=== PATIENT | male | born 1945 | race Two or more races ===

== ENCOUNTER 2017-09-06 09:28 | Emergency (ER) | payer OTHER ==
[2017-09-06 09:49] VITALS: BP 124/77; PULSE 58; TEMP 98; BMI 23.5
--- NOTE | 2017-09-06 11:15 | PDOC ---
History of Present Illness <Josué Elias - Last Filed: 09/06/17 12:34> - General History Source: Patient Exam Limitations: No Limitations - History of Present Illness Initial Comments: 09/06/17 14:08 The patient is a 72 year old male, with a significant past medical history of HTN, Atrial Fibrillation, HLD, DM who presents to the emergency department with R hand/finger pain for the past 2 weeks. Patient reports gradual onset of tingling pain to his 2nd, 3rd and 4th digits. Patient's finger pain is constant and is worse at night but does bother him during the day. Patients pain has been worsening and presents to the ED for further evaluation. Patient denies any insect bites, injuries ,scratches, cuts or falls/injuries. Pt does not do any repeittive motions, or computer work. typically spends his day watching tv. No pain anywhere else including neck, shoulder/elbow/wrist. no headache chest pain, sob, back pain, leg swelling. Allergies: NKA Past surgical history: None Social history: Current everyday smoker PCP: None <Kate Grande - Last Filed: 09/06/17 14:08> - General Chief Complaint: Edema Stated Complaint: SWOLLEN RT HAND Time Seen by Provider: 09/06/17 10:19 Past History - Past Medical History COPD: No DVT: No Diabetes: Yes Dialysis: No GI Disorders: No HTN: Yes Hypercholesterolemia: Yes - Suicide/Smoking/Psychosocial Hx Smoking Status: Yes Smoking History: Current every day smoker Have you smoked in the past 12 months: Yes Number of Cigarettes Smoked Daily: 10 Information on smoking cessation initiated: Yes 'Breaking Loose' booklet given: 09/06/17 Hx Alcohol Use: No Drug/Substance Use Hx: No Substance Use Type: None <Josué Elias - Last Filed: 09/06/17 12:34> <Kate Grande - Last Filed: 09/06/17 14:08> - Past Medical History Allergies/Adverse Reactions: Allergies Allergy/AdvReac Type Severity Reaction Status Date / Time No Known Allergies Allergy Verified 09/06/17 09:46 Home Medications: Ambulatory Orders Amox-Tr/K Cl [Augmentin 875-125mg Tablet -] 1 each PO BID #14 tablet 05/06/12 Aspirin [ASA] 81 mg PO DAILY 05/06/12 Lisinopril [Prinivil] 10 mg PO DAILY 05/06/12 Metformin HCl [Glucophage] 500 mg PO BID 05/06/12 Oxycodone HCl/Acetaminophen [Percocet 5-325 mg Tablet] 1 - 2 combo PO Q6H #12 tablet 05/06/12 Tamsulosin HCl [Flomax] 0.4 mg PO DAILY 05/06/12 Review of Systems - Review of Systems Able to Perform ROS?: Yes Comments:: 09/06/17 14:08 CONSTITUTIONAL: No reported: Fever, Chills, Diaphoresis, Generalized Weakness, Malaise, Loss of Appetite HEENT: No reported: Rhinorrhea, Nasal Congestion, Throat Pain, Throat Swelling, Difficulty Swallowing, Mouth Swelling, Ear Pain, Eye Pain, Visual Changes CARDIOVASCULAR: No reported: Chest Pain, Syncope, Palpitations, Irregular Heart Rate, Lightheadedness, Peripheral Edema RESPIRATORY: No reported: Cough, Shortness of Breath, SOB with Exertion, Orthopnea, Wheezing , Stridor, Hemoptysis GASTROINTESTINAL: No reported: Abdominal pain, Abdominal Distension, Nausea, Vomiting, Diarrhea, Constipation, Melena, Hematochezia GENITOURINARY: No reported: Dysuria, Frequency, Urgency, Hesitancy, Flank Pain, Genital Pain MUSCULOSKELETAL: + R hand redness and swelling. No reported: Myalgia, Arthralgia, Joint Swelling, Back pain, Neck Pain SKIN: No reported: Rash, Itching, Pallor HEMEATOLOGIC/IMMUNOLOGIC: No reported: Easy Bleeding, Easy Bruising, Lymphadenopathy, Frequent infections ENDOCRINE: No reported: Unexplained Weight Gain, Unexplained Weight Loss, Heat Intolerance , Cold Intolerance NEUROLOGIC: No reported: Headache, Focal Weakness, Paresthesias, Vertigo, Lightheadedness, Unsteady Gait, Seizure, Mental Status Changes, Incontinence PSYCHIATRIC: No reported: Anxiety, Depression <Kate Grande - Last Filed: 09/06/17 14:08> *Physical Exam - Vital Signs Last Vital Signs Temp Pulse Resp BP Pulse Ox 98.0 F 58 L 18 124/77 100 09/06/17 09:47 09/06/17 09:47 09/06/17 09:47 09/06/17 09:47 09/06/17 09:47 <Josué Elias - Last Filed: 09/06/17 12:34> - Vital Signs Last Vital Signs Temp Pulse Resp BP Pulse Ox 98.0 F 58 L 18 124/77 100 09/06/17 09:47 09/06/17 09:47 09/06/17 09:47 09/06/17 09:47 09/06/17 09:47 - Physical Exam Comments: 09/06/17 14:08 GENERAL: The patient is awake, alert, and fully oriented, Nontoxic - in no acute distress. HEAD: Normocephalic, atraumatic. NECK: Normal range of motion, supple LUNGS: Breath sounds equal, clear to auscultation bilaterally. No wheezes, no rhonchi, no rales. HEART: Regular rate and rhythm, without murmur, rub or gallop. ABDOMEN: Soft, nontender, normoactive bowel sounds. No guarding, no rebound.No CVA tenderness EXTREMITIES: Normal range of motion, no LE edema. sensation intact on digits, mild edema of fingers no erythema, induration, warmth. no wounds noted. no focal bony tenderness. subjective sensations on 2nd/3rd/4th digits. NEUROLOGICAL: No facial asymmetry, Normal speech, PSYCH: Normal mood, normal affect. SKIN: Warm, Dry, normal turgor. <Kate Grande - Last Filed: 09/06/17 14:08> ED Treatment Course - Medications Given in the ED: ED Medications Discontinued Medications Generic Name Dose Route Start Last Admin Trade Name Rickyq PRN Reason Stop Dose Admin Acetaminophen 650 mg 09/06/17 11:16 09/06/17 11:34 Tylenol - PO 09/06/17 11:17 650 mg ONCE ONE Administration <Kate Grande - Last Filed: 09/06/17 14:08> Medical Decision Making - Medical Decision Making 09/06/17 11:14 72y M hx of htn, afib, hl, dm, presenst with complaint of atraumatic R hand pain /tingling in the fingers primarily in the R index/ring fingers suspect possibe medial nerve pathology will refer to neurology for further management will have pt keep his arm elevated no signs of infection return precautions were disussed <Josué Elias - Last Filed: 09/06/17 12:34> *DC/Admit/Observation/Transfer - Discharge Dispostion Admit: No <Josué Elias - Last Filed: 09/06/17 12:34> - Attestations Scribe Attestion: 09/06/17 14:08 Documentation prepared by Kate Grande, acting as medical physicist for Josué Elias MD <Kate Grande - Last Filed: 09/06/17 14:08> Diagnosis at time of Disposition: Peripheral neuropathic pain - Discharge Dispostion Disposition: HOME Condition at time of disposition: Stable - Referrals Referrals: Juan Carlos Sanabria MD [Staff Physician] - - Patient Instructions Printed Discharge Instructions: Neuropathic Pain Additional Instructions: Return to the emergency department immediately with ANY new, persistent or worsening symptoms including any fever/chills, neck pain, numbness, waekness, spreading symptoms or other concerns. You MUST call and follow up with your doctor nad a neurologist within 4 days for further evaluation of your symptoms. Results were discussed with you. Please make sure your doctor reviews the results of your emergency evaluation.
[2017-09-06] MEDS ORDERED: ACETAMINOPHEN 325 MG TABLET (FP) PO ONE (11:16)
[2017-09-06] MEDS ORDERED: ACETAMINOPHEN 325 MG TABLET (FP) ONE (11:26)
== END 2017-09-06 12:49 | disposition home or self-care (01) ==
LOC: JER 09:28
DX: G58.8 Other specified mononeuropathies (principal); I10 Essential (primary) hypertension; E78.00 Pure hypercholesterolemia, unspecified; E11.9 Type 2 diabetes mellitus without complications; I48.91 Unspecified atrial fibrillation; Z79.01 Long term (current) use of anticoagulants; F17.210 Nicotine dependence, cigarettes, uncomplicated
CPT/HCPCS: 99281-25

== ENCOUNTER 2018-11-22 10:13 | Emergency (ER) | payer OTHER ==
[2018-11-22 10:23] VITALS: BP 147/80; PULSE 79; TEMP 98.4; BMI 23.5
--- NOTE | 2018-11-22 11:13 | PDOC ---
History of Present Illness - General History Source: Patient Exam Limitations: No Limitations - History of Present Illness Initial Comments: 11/22/18 12:12 The patient is a 73-year-old male, with a past medical history of HTN, HLD, and DM, who presents to the ED s/p mechanical fall. Patient states he was walking on the sidewalk when he slipped on ice and fell backwards. He states that his neck and back took most of the impact from the fall. He denies any loss of consciousness but is now complaining of neck pain, back pain, and chest pain. Patient denies experiencing chest pain prior to the fall. He denies having any hip pain or extremity pain. Patient takes aspirin occasionally but none today. The patient denies having any other injuries or symptoms. Allergies: NKA Social History: Former smoker. Surgical History: None reported. <Stephanie Hawkins - Last Filed: 11/22/18 12:12> <George Harper - Last Filed: 11/22/18 16:42> - General Chief Complaint: Injury Stated Complaint: FALL Time Seen by Provider: 11/22/18 11:13 Past History <Stephanie Hawkins - Last Filed: 11/22/18 12:12> - Past Medical History COPD: No DVT: No Diabetes: Yes Dialysis: No GI Disorders: No HTN: Yes Hypercholesterolemia: Yes - Suicide/Smoking/Psychosocial Hx Smoking Status: Yes Smoking History: Former smoker Have you smoked in the past 12 months: No Number of Cigarettes Smoked Daily: 10 Information on smoking cessation initiated: No 'Breaking Loose' booklet given: 09/06/17 Hx Alcohol Use: No Drug/Substance Use Hx: No Substance Use Type: None <George Harper - Last Filed: 11/22/18 16:42> - Past Medical History Allergies/Adverse Reactions: Allergies Allergy/AdvReac Type Severity Reaction Status Date / Time No Known Allergies Allergy Verified 11/22/18 10:23 Home Medications: Ambulatory Orders Aspirin [ASA] 81 mg PO DAILY 05/06/12 Lisinopril [Prinivil] 10 mg PO DAILY 05/06/12 Tamsulosin HCl [Flomax] 0.4 mg PO DAILY 05/06/12 metFORMIN HCL [Glucophage] 500 mg PO BID 05/06/12 Review of Systems - Review of Systems Able to Perform ROS?: Yes Comments:: 11/22/18 12:17 CONSTITUTIONAL: No fever, no chills, no fatigue EYES: No visual changes ENT: (+)Neck pain. No ear pain, no sore throat CARDIOVASCULAR: (+)Chest pain. No palpitations RESPIRATORY: No cough, no SOB GI: No abdominal pain, no nausea, no vomiting, no constipation, no diarrhea GENITOURINARY: No dysuria, no frequency, no hematuria MUSKULOSKELETAL: (+)Back pain. No joint pain. SKIN: No rash NEURO: No headache <Stephanie Hawkins - Last Filed: 11/22/18 12:12> *Physical Exam - Vital Signs Last Vital Signs Temp Pulse Resp BP Pulse Ox 98.4 F 79 18 147/80 100 11/22/18 10:16 11/22/18 10:16 11/22/18 10:16 11/22/18 10:16 11/22/18 10:16 <Stephaine Hawkins - Last Filed: 11/22/18 12:12> - Vital Signs Last Vital Signs Temp Pulse Resp BP Pulse Ox 98.4 F 79 18 147/80 100 11/22/18 10:16 11/22/18 10:16 11/22/18 10:16 11/22/18 10:16 11/22/18 10:16 - Physical Exam Comments: 11/22/18 11:57 EXAMINATION CONSTITUTIONAL: Alert, awake Well-appearing; well-nourished; in no apparent distress; GCS-15 HEAD: Normocephalic; atraumatic EYES: PERRL; EOM intact ENMT: External appears normal; normal oropharynx; + poor dentition NECK: C-collar in place, no obvious midline deformity, C2-C5 midline and paraspinal tenderness to palpation CARD: Normal S1, S2; no murmurs, rubs, or gallops RESP: Normal chest excursion with respiration; left anterior chest wall tenderness; breath sounds clear and equal bilaterally; no wheezes, rhonchi, or rales ABD: Soft, non-distended; non-tender; no palpable organomegaly, no palpable hernias Pelvis is stable BACK: No obvious deformity; midline tenderness at the T10th through T12; L3 through L5; EXT: Normal ROM in all four extremities; non-tender to palpation; distal pulses intact SKIN: Warm, dry, no rash NEURO: Cranial nerves II through XII are grossly intact; motor is 5 of 54; no pronation drift; gait-deferred. <George Harper - Last Filed: 11/22/18 16:42> Moderate Sedation - Procedure Monitoring Vital Signs: Procedure Monitoring Vital Signs Temperature 98.4 F 11/22/18 10:16 Pulse Rate 79 11/22/18 10:16 Respiratory Rate 18 11/22/18 10:16 Blood Pressure 147/80 11/22/18 10:16 O2 Sat by Pulse Oximetry (%) 100 11/22/18 10:16 <Stephanie Hawkins - Last Filed: 11/22/18 12:12> - Procedure Monitoring Vital Signs: Procedure Monitoring Vital Signs Temperature 98.4 F 11/22/18 10:16 Pulse Rate 79 11/22/18 10:16 Respiratory Rate 18 11/22/18 10:16 Blood Pressure 147/80 11/22/18 10:16 O2 Sat by Pulse Oximetry (%) 100 11/22/18 10:16 <George Harper - Last Filed: 11/22/18 16:42> Medical Decision Making - Medical Decision Making 11/22/18 16:40 Patient is a 73-year-old male who presents to the ER with traumatic injuries to his neck, mid and lower back and right hip. No LOC was reported at the scene. CT of head/cervical spine shows no evidence of acute pathology. X-rays of the chest, right hip and pelvis, T and L-spine revealed no evidence of fracture dislocation. Contusions are suspected. We'll discharge with Tylenol and icing for pain with PMD follow-up. <George Harper - Last Filed: 11/22/18 16:42> *DC/Admit/Observation/Transfer - Attestations Scribe Attestion: 11/22/18 12:18 Documentation prepared by Stephanie Hawkins, acting as rn medical surgical for George Harper MD. <Stephanie Hawkins - Last Filed: 11/22/18 12:12> <George Harper - Last Filed: 11/22/18 16:42> Diagnosis at time of Disposition: Head injury due to trauma Qualifiers: Encounter type: initial encounter Qualified Code(s): S09.90XA - Unspecified injury of head, initial encounter Contusion of neck Qualifiers: Encounter type: initial encounter Qualified Code(s): S10.93XA - Contusion of unspecified part of neck, initial encounter Contusion of left back wall of thorax Qualifiers: Encounter type: initial encounter Qualified Code(s): S20.222A - Contusion of left back wall of thorax, initial encounter Contusion of hip, right Qualifiers: Encounter type: initial encounter Qualified Code(s): S70.01XA - Contusion of right hip, initial encounter - Discharge Dispostion Disposition: HOME Condition at time of disposition: Stable - Patient Instructions Printed Discharge Instructions: DI for Closed Head Injury, DI for Contusion, DI for Rib Contusion
== END 2018-11-22 16:51 | disposition home or self-care (01) ==
LOC: JER 10:13
DX: S09.90XA Unspecified injury of head, initial encounter (principal); S10.93XA Contusion of unspecified part of neck, initial encounter; S20.222A Contusion of left back wall of thorax, initial encounter; S70.01XA Contusion of right hip, initial encounter; I10 Essential (primary) hypertension; E78.00 Pure hypercholesterolemia, unspecified; W00.0XXA Fall on same level due to ice and snow, initial encounter; Y93.89 Activity, other specified; Y92.89 Other specified places as the place of occurrence of the external cause; E78.5 Hyperlipidemia, unspecified; E11.9 Type 2 diabetes mellitus without complications; Z87.891 Personal history of nicotine dependence
CPT/HCPCS: 70450-TC; 71045-TC-FY; 72070-TC-FY; 72100-TC-FY; 72125-TC; 73523-TC-FY; 99282-25